=== PATIENT | female | born 1990 | race Caucasian/White ===

== ENCOUNTER 2019-11-25 17:16 | Outpatient (CLI) | payer BC ==
[2019-11-25 17:53] LABS: Glucose,Whole Blood 90 mg/dL (75-99)
[2019-11-25 18:17] VITALS: BP 125/65; PULSE 87; RESP 16; TEMP 98.7
--- NOTE | 2019-12-04 07:59 | P.MSEPDOC ---
Presenting Problems - Arrival Data Date of Arrival on Unit: 11/25/19 Time of Arrival on Unit: 17:16 Mode of Transport: Ambulatory - Complaint OB-Reason for Admission/Chief Complaint: Observation/Evaluation Medical History - Information : 2 Para: 1 Term: 1 : 0 Abortions: Spontaneous or Elective: 0 Number of Living Children: 1 - Gestational Age Gestational Age by BESSY (wks/days): 22 Weeks and 2 Days Review of Systems - Review of Systems Constitutional: No problems Breast: No problems ENT: No problems Cardiovascular: No problems Respiratory: No problems Gastrointestinal: No problems Genitourinary: No problems Musculoskeletal: No problems Neurological: Dizziness Skin: No problems Vital Signs - Temperature Temperature: 98.7 F Temperature Source: Temporal Artery Scan - Pulse Right Sitting Pulse Rate: 87 Pulse Assessment Method: Automatic Cuff - Respirations Respiratory Rate: 16 Oxygen Delivery Method: Room Air - Blood Pressure Right Arm Blood Pressure: 125/65 Blood Pressure Mean: 85 Blood Pressure Source: Automatic Cuff Medical Screen Scoring (Pre) - Cervical Exam Dilation: Exam Deferred Effacement: Exam Deferred Membranes: Intact - Uterine Contractions Frequency: N/A - Maternal Vital Signs Maternal Temperature: N/A Maternal Respirations: N/A - Maternal Trauma Maternal Trauma: N/A - Assessment - Baby A Position: N/A Station: N/A - Total Score - Baby A Total Score - Baby A: 0 - Total Score - Baby B Total Score - Baby B: 0 - Total Score - Baby C Total Score - Baby C: 0 - Level of Risk - Baby A Level of Risk - Baby A: Low (0-5) - Level of Risk - Baby B Level of Risk - Baby B: Low (0-5) - Level of Risk - Baby C Level of Risk - Baby C: Low (0-5) Physician Notification (Pre) - Physician Notified Physician Notified Date: 11/25/19 Physician Notified Time: 17:58 New Order Received: Yes (d/c home) Disposition - Disposition OB Disposition: Physician follow up in office, Discharge to home Discharge Date: 11/25/19 Discharge Time: 17:58 I agree with the RN Medical Screening Exam: No Risk & Benefit of care provided described in d/c instruction: No Risk & Benefit of Care Comment: Cannot agree or disagree secondary to incomplete documentation Diagnosis: RELATED CONDITIONS, UNSPECIFIED, THIRD TRIMESTER
== END 2019-11-25 18:00 | disposition home or self-care (01) ==
LOC: FBPOP 17:16
PROVIDERS: ATTEND Obstetrics & Gynecology
DX: O26.92 Pregnancy related conditions, unspecified, second trimester (principal); Z3A.22 22 weeks gestation of pregnancy
CPT/HCPCS: 99213

== ENCOUNTER 2019-12-09 14:13 | Outpatient (CLI) | payer BC ==
[2019-12-09 16:05] VITALS: BP 119/65; PULSE 75; RESP 16; TEMP 97.3
--- NOTE | 2019-12-10 07:42 | P.MSEPDOC ---
Presenting Problems - Arrival Data Date of Arrival on Unit: 12/09/19 Time of Arrival on Unit: 15:13 Mode of Transport: Ambulatory - Complaint OB-Reason for Admission/Chief Complaint: Vaginal Bleeding Medical History - Information : 2 Para: 1 Term: 1 : 0 Abortions: Spontaneous or Elective: 0 Number of Living Children: 1 - Gestational Age Gestational Age by BESSY (wks/days): 24 Weeks and 2 Days Review of Systems - Review of Systems Constitutional: No problems Breast: No problems ENT: No problems Cardiovascular: No problems Respiratory: No problems Gastrointestinal: No problems Genitourinary: No problems Musculoskeletal: No problems Neurological: No problems Skin: No problems Vital Signs - Temperature Temperature: 97.3 F Temperature Source: Temporal Artery Scan - Pulse Right Brachial Pulse Rate: 75 Pulse Assessment Method: Automatic Cuff - Respirations Respiratory Rate: 16 Oxygen Delivery Method: Room Air - Blood Pressure Right Arm Blood Pressure: 119/65 Blood Pressure Mean: 83 Blood Pressure Source: Automatic Cuff Medical Screen Scoring (Pre) - Cervical Exam Dilation: Exam Deferred Effacement: Exam Deferred Membranes: Intact - Uterine Contractions Frequency: N/A Duration: N/A Intensity: N/A - Maternal Vital Signs Maternal Temperature: N/A Maternal Blood Pressure: N/A Signs of Preeclampsia: N/A Maternal Respirations: N/A - Maternal Trauma Maternal Trauma: N/A - Assessment - Baby A Baseline FHR: 140 Heart Rate - NICHD Category: Category I (Normal) = 0 NST: Reactive Position: N/A Station: N/A - Total Score - Baby A Total Score - Baby A: 0 - Total Score - Baby B Total Score - Baby B: 0 - Total Score - Baby C Total Score - Baby C: 0 - Level of Risk - Baby A Level of Risk - Baby A: Low (0-5) - Level of Risk - Baby B Level of Risk - Baby B: Low (0-5) - Level of Risk - Baby C Level of Risk - Baby C: Low (0-5) Physician Notification (Pre) - Physician Notified Physician Notified Date: 12/09/19 Physician Notified Time: 15:46 New Order Received: Yes - Notification Comment Comment: Dr. Rodriguez in unit and given report on pt in triage. Pt c/o. Reviewed strip. Pt. VS WNL. No active bleeding noted per pt or new blood on pad. Orders recieved to d/c pt. to home. To educate pt to call office for apt within next 7-10 days. Pelvic rest and. increase fluids. Disposition - Disposition OB Disposition: Physician follow up in office, Discharge to home Discharge Date: 12/09/19 Discharge Time: 15:50 I agree with the RN Medical Screening Exam: Yes Risk & Benefit of care provided described in d/c instruction: Yes Diagnosis: SPOTTING COMPLICATING , SECOND TRIMESTER
== END 2019-12-09 15:55 | disposition home or self-care (01) ==
LOC: FBPOP 14:13
PROVIDERS: ATTEND Obstetrics & Gynecology
DX: O26.852 Spotting complicating pregnancy, second trimester (principal); Z3A.24 24 weeks gestation of pregnancy
CPT/HCPCS: 99213

== ENCOUNTER 2020-03-10 14:19 | Outpatient (CLI) | payer BC ==
[2020-03-10 16:12] VITALS: BP 129/70; PULSE 81; RESP 16; TEMP 98.1
--- NOTE | 2020-03-13 09:28 | P.MSEPDOC ---
Presenting Problems - Arrival Data Date of Arrival on Unit: 03/10/20 Time of Arrival on Unit: 14:19 Mode of Transport: Ambulatory - Complaint OB-Reason for Admission/Chief Complaint: Pain Comment: constant lower abd pain since being checked this am in office Medical History - Information : 2 Para: 1 Term: 1 : 0 Abortions: Spontaneous or Elective: 0 Number of Living Children: 1 - Gestational Age Gestational Age by BESSY (wks/days): 37 Weeks and 4 Days Review of Systems - Review of Systems Constitutional: No problems Breast: No problems ENT: No problems Cardiovascular: No problems Respiratory: No problems Gastrointestinal: No problems Genitourinary: No problems Musculoskeletal: No problems Neurological: No problems Skin: No problems Vital Signs - Temperature Temperature: 98.1 F Temperature Source: Temporal Artery Scan - Pulse Right Sitting Pulse Rate: 81 Pulse Assessment Method: Automatic Cuff - Respirations Respiratory Rate: 16 Oxygen Delivery Method: Room Air - Blood Pressure Right Arm Blood Pressure: 129/70 Blood Pressure Mean: 89 Blood Pressure Source: Automatic Cuff Medical Screen Scoring (Pre) - Cervical Exam Dilation: 1-3 cm = 1 Effacement: More than 50% = 2 Membranes: Intact - Uterine Contractions Frequency: > or = 36 weeks =2 Duration: > 40 seconds = 2 Intensity: N/A - Maternal Vital Signs Maternal Temperature: N/A Maternal Blood Pressure: N/A Signs of Preeclampsia: N/A Maternal Respirations: N/A - Maternal Trauma Maternal Trauma: N/A - Assessment - Baby A Baseline FHR: 130 Heart Rate - NICHD Category: Category I (Normal) = 0 NST: Reactive Position: N/A Station: N/A - Total Score - Baby A Total Score - Baby A: 7 - Total Score - Baby B Total Score - Baby B: 7 - Total Score - Baby C Total Score - Baby C: 7 - Level of Risk - Baby A Level of Risk - Baby A: Medium (6-9) - Level of Risk - Baby B Level of Risk - Baby B: Medium (6-9) - Level of Risk - Baby C Level of Risk - Baby C: Medium (6-9) Physician Notification (Pre) - Physician Notified Physician Notified Date: 03/10/20 Physician Notified Time: 15:14 New Order Received: Yes (D/c home if no change in cervix) Disposition - Disposition OB Disposition: Physician follow up in office, Discharge to home Discharge Date: 03/10/20 Discharge Time: 15:50 I agree with the RN Medical Screening Exam: Yes Risk & Benefit of care provided described in d/c instruction: Yes Diagnosis: FALSE LABOR AT OR AFTER 37 COMPLETED WEEKS OF GESTATION
== END 2020-03-10 15:50 | disposition home or self-care (01) ==
LOC: FBPOP 14:19
PROVIDERS: ATTEND Obstetrics & Gynecology
DX: O47.1 False labor at or after 37 completed weeks of gestation (principal); Z3A.37 37 weeks gestation of pregnancy
CPT/HCPCS: 59025; 99213

== ENCOUNTER 2020-03-22 06:00 | Inpatient (IN) | payer BC ==
[2020-03-22] MEDS ORDERED: METHYLERGONOVINE 0.2 MG/ML 1 ML AMP IM PRN (06:12)
[2020-03-22] MEDS ORDERED: OXYTOCIN 10 UNIT/ML 1 ML VIAL IM PRN (06:12)
[2020-03-22] MEDS ORDERED: LIDOCAINE 0.5% (PF) 5 MG/ML (50 ML SDV) SQ PRN (06:12)
[2020-03-22] MEDS ORDERED: CARBOPROST TROMETHAMINE 250 MCG/ML 1 ML AMP IM PRN (06:12)
[2020-03-22] MEDS ORDERED: TERBUTALINE 1 MG/ML VIAL SQ PRN (06:12)
[2020-03-22] MEDS: LACTATED RINGERS 1,000 ML IV SCH ×2 (06:43→09:19)
[2020-03-22] MEDS: OXYTOCIN 30 UNITS/500 ML NS 30 UNIT in SALINE 1 500ML.BAG IV SCH (06:44)
--- NOTE | 2020-03-22 07:36 | P.HPOB ---
History of Present Illness H&P Date: 03/22/20 This is a 29-year-old white female 2 para 1001 EDC 03/28/2020 at 39 and one sevenths weeks' gestation. Patient presents today for induction with favorable multiparous cervix. Fetus is been active throughout the . She denies vaginal bleeding or fluid leakage. history significant for blood type A+, rubella status immune. Urine culture, hepatitis B surface antigen, HIV testing, gonorrhea and chlamydia cultures, group B strep cultures all negative. Pap within normal limits. One- hour Glucola 95. Past medical history is essentially unremarkable. 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 Past surgical history negative. Current medications vitamins daily, valtrex 500mg daily prophylactically. ALLERGIES penicillin to which reports an unknown reaction as a child. Social history patient is , her is present and involved. She has never been a smoker. She denies alcohol or drug use. Family history is significant for colon cancer. On exam this is a pleasant white female who is 5 foot 7 inches, 179 pounds, blood pressure 127/67, vital signs stable and she is afebrile. The general physical exam is within normal limits. Extremities reveal no edema. Chest is clear. Pelvic exam reveals cervix to be 4 cm dilated, 80% effaced, -2 station, vertex presentation, soft and anterior. Artificial amniorrhexis reveals clear fluid. heart rate is in the 130s with frequent accelerations consistent with reactive NST. Patient is having mild contractions every 4 minutes apart which she does not palpate. Impression: 39 and one sevenths weeks intrauterine , here for induction of labor, all signs reassuring. No HSV lesions or prodrome. Plan: Continue close maternal and surveillance. Oxytocin per hospital protocol. Analgesic options reviewed with the patient. Anticipate normal spontaneous vaginal delivery. Review of Systems Constitutional: Reports as per HPI Past Medical History Past Medical History: No Reported History History of Any Multi-Drug Resistant Organisms: None Reported Past Surgical History: No Surgical Hx Reported Past Anesthesia/Blood Transfusion Reactions: No Reported Reaction Past Psychological History: No Psychological Hx Reported Smoking Status: Never smoker Past Alcohol Use History: None Reported Past Drug Use History: None Reported - Past Family History Mother Family Medical History: No Reported History Medications and Allergies Home Medications Medication Instructions Recorded Confirmed Type Pnv No.95/Ferrous Fum/Folic AC 1 each PO DAILY 12/25/19 04/21/20 History [ Multivitamin Tablet] valACYclovir [Valtrex] 1 tab PO DAILY 03/10/20 03/22/20 History Allergies Allergy/AdvReac Type Severity Reaction Status Date / Time Penicillins AdvReac Unknown Verified 03/10/20 14:44 Childhood Exam Vital Signs Temp Pulse Resp BP Pulse Ox 03/22/20 06:10 97.3 F L 95 16 127/67 96 Intake and Output 03/21/20 03/22/20 03/22/20 22:59 06:59 14:59 Other: Weight 81.193 kg See dictation under HPI please Assessment and Plan Assessment: 39 and one sevenths weeks intrauterine , here for elective induction of labor. All signs reassuring. Plan: Continue oxytocin per hospital protocol. Continue close maternal and surveillance. Anticipate normal spontaneous vaginal delivery. Time with Patient: Less than 30
[2020-03-22 07:37] LABS: Basophils % (A) 0 %; Eosinophils # (A) 0.1 k/uL (0-0.7); Eosinophils % (A) 2 %; HCT 39.2 % (34.0-46.0); Lymphocytes # (A) 1.4 k/uL (1.0-4.8); Lymphocytes % (A) 19 %; MCH 31.3 pg (25.0-35.0); MCV 94.7 fL (80.0-100.0); Monocytes # (A) 0.4 k/uL (0-1.0); Monocytes % (A) 6 %; Neutrophils # (A) 5.1 k/uL (1.3-7.7); Neutrophils % (A) 72 %; Platelet Count 148 k/uL (150-450); RBC 4.14 m/uL (3.80-5.40); RDW 14.5 % (11.5-15.5); WBC 7.1 k/uL (3.8-10.6)
[2020-03-22] MEDS ORDERED: SODIUM CHLORIDE 0.9% 100 ML BAG ONE (08:59)
[2020-03-22] MEDS ORDERED: ROPIVACAINE 5MG/ML 20ML VIAL ONE (08:59)
[2020-03-22] MEDS ORDERED: fentaNYL (PF) 50 MCG/ML 5 ML AMP ONE (08:59)
[2020-03-22] MEDS ORDERED: ACETAMINOPHEN TAB 325 MG TAB PO PRN (12:39)
[2020-03-22] MEDS ORDERED: HYDROCORTISONE 2.5% RECTAL CREAM 30 GM TUBE RECTAL PRN (12:39)
[2020-03-22] MEDS ORDERED: diphenhydrAMINE 50 MG CAP PO PRN (12:39)
[2020-03-22] MEDS ORDERED: LANOLIN CREAM 5 GM TUBE TOPICAL PRN (12:39)
[2020-03-22] MEDS ORDERED: diphenhydrAMINE 25 MG CAP PO PRN (12:39)
[2020-03-22] MEDS ORDERED: WITCH HAZEL 1 EACH MED..PAD TOPICAL PRN (12:39)
[2020-03-22] MEDS ORDERED: BENZOCAINE/MENTHOL SPRAY 1 GM/SPRAY AEROSOL TOPICAL PRN (12:39)
[2020-03-22] MEDS ORDERED: SIMETHICONE 80 MG CHEWABLE PO PRN (12:39)
[2020-03-22] MEDS ORDERED: diphenhydrAMINE ELIXIR 25 MG/10 ML CUP PO PRN (12:39)
[2020-03-22] MEDS ORDERED: ZOLPIDEM 5 MG TAB PO PRN (12:39)
[2020-03-22] MEDS ORDERED: diphenhydrAMINE 50 MG/ML 1 ML VIAL IVP PRN ×2 (12:39)
--- NOTE | 2020-03-22 12:39 | P.PROBDLV ---
Vaginal Delivery Note - . Vaginal Delivery Note: This is a 29-year-old white female 2 para 1001 EDC 03/28/2020 at 39 and one sevenths weeks' gestation. Patient presented for induction with favorable multiparous cervix. Fetus is been active throughout the . Blood type A+, rubella status immune, group B strep cultures negative. Please see admitting history and physical for details. Artificial amniorrhexis revealed clear fluid. Oxytocin was started and titrated per hospital protocol. Epidural was placed per her request. Patient has a history of HSV, but no lesions or prodrome, on Valtrex 500 mg daily. heart tones were reassuring throughout the first and second stages of labor. Patient became completely dilated and began the second stage of labor at that time. Perineal body was prepped and draped in usual sterile fashion. With excellent maternal expulsive efforts the 's head delivered occiput anterior and restituted accordingly. There was no nuchal cord noted. The right or anterior shoulder was gently delivered from underneath the pubic symphysis at which time the oropharynx, nasopharynx, and external nares were bulb suctioned on the perineal body. Patient was officially delivered of a liveborn male infant at 1224 hours. Umbilical cord was doubly clamped and ligated, he was handed to waiting nurses for evaluation where scores of 8 and 9 at one and 5 minutes respectively were given. The placenta delivered with active management, was inspected and noted to be intact with trivascular cord at 1229 hours. Uterus is then massaged. Careful inspection of the cervix, vagina, perineum, periurethral, and perirectal areas revealed no lacerations and no defects. weighs 4620 g or 10 lbs. 3 oz. Total estimated blood loss 350 mL's. Patient and her are requesting circumcision for their infant son.
[2020-03-22] MEDS ORDERED: OXYTOCIN 20 UNITS/1000 ML NS 1,000 ML IV SCH (12:45)
[2020-03-22] MEDS: IBUPROFEN 600 MG TAB PO PRN (17:37)
[2020-03-22] MEDS: SENNOSIDES-DOCUSATE SODIUM 1 EACH TAB PO SCH (19:22)
[2020-03-23] MEDS: IBUPROFEN 600 MG TAB PO PRN ×3 (00:17→13:18)
[2020-03-23] MEDS: SENNOSIDES-DOCUSATE SODIUM 1 EACH TAB PO SCH (07:28)
[2020-03-23 07:30] VITALS: BP 103/75; PULSE 78; RESP 17; TEMP 98
[2020-03-23] MEDS: OXYTOCIN 30 UNITS/500 ML NS 30 UNIT in SALINE 1 500ML.BAG IV SCH (08:04)
[2020-03-23] MEDS: LACTATED RINGERS 1,000 ML IV SCH (08:04)
--- NOTE | 2020-03-23 11:51 | P.DS ---
Providers Date of admission: 03/22/20 06:00 Expected date of discharge: 03/23/20 Attending physician: Alie Rodriguez Primary care physician: Stated None Hospital Course: This is a 29-year-old white female 2 para 1001 EDC 03/28/2020 at 39 and one sevenths weeks' gestation. Patient presented for induction with favorable multiparous cervix. was remarkable for negative group B strep cultures, blood type B positive, rubella status immune. Please see dictated history and physical for details. Artificial amniorrhexis was performed. Epidural was placed per her request. Oxytocin titrated per hospital protocol. Patient went on to deliver vaginally a liveborn male infant with scores of 8 and 9 at one and 5 minutes respectively. He weighed 4620 g, or 10 lbs. 3 oz. Estimated blood loss 350 mL's. Please see dictated delivery note for details. This morning circumcision has been performed. Alma is doing well. Patient herself is also judged to be in very good condition for discharge home. She will use [id number] Advil or Aleve, or Motrin as needed for pain. She will continue taking her vitamin daily. We have reviewed options for contraception and we will discuss this further in the office. No intercourse, tampons or douching. No heavy lifting. Patient will call with any fevers shakes or chills, foul smelling or copious lochia, with the passage of large blood clots, with any pain not alleviated by [id number] products, or indeed with any concerns. Parents will follow up with 's vehicle technician as recommended. Assessment: Doing well day #1 Patient Condition at Discharge: Good Plan - Discharge Summary Discharge Rx Participant: No New Discharge Prescriptions: No Action Pnv No.95/Ferrous Fum/Folic AC [ Multivitamin Tablet] 1 each PO DAILY valACYclovir [Valtrex] 1 tab PO DAILY Discharge Medication List Pnv No.95/Ferrous Fum/Folic AC [ Multivitamin Tablet] 1 each PO DAILY 11/25/19 [History] valACYclovir [Valtrex] 1 tab PO DAILY 03/10/20 [History] Follow up Appointment(s)/Referral(s): Alie Rodriguez MD [STAFF PHYSICIAN] - 6 Weeks
== END 2020-03-23 13:20 | disposition home or self-care (01) | DRG 807 ==
LOC: 4FBP 06:00
PROVIDERS: ADMIT Obstetrics & Gynecology; ATTEND Obstetrics & Gynecology
PROC: 10E0XZZ Delivery of Products of Conception, External Approach (ICD-10-PCS; principal; 2020-03-22)
PROC: 3E033VJ Introduction of Other Hormone into Peripheral Vein, Percutaneous Approach (ICD-10-PCS; principal; 2020-03-22)
PROC: 00HU33Z Insertion of Infusion Device into Spinal Canal, Percutaneous Approach (ICD-10-PCS; principal; 2020-03-22)
PROC: 3E0R3BZ Introduction of Anesthetic Agent into Spinal Canal, Percutaneous Approach (ICD-10-PCS; principal; 2020-03-22)
PROC: 10907ZC Drainage of Amniotic Fluid, Therapeutic from Products of Conception, Via Natural or Artificial Opening (ICD-10-PCS; principal; 2020-03-22)
DX: O80 Encounter for full-term uncomplicated delivery (principal); Z37.0 Single live birth; Z3A.39 39 weeks gestation of pregnancy; Z79.899 Other long term (current) drug therapy; Z86.19 Personal history of other infectious and parasitic diseases; Z88.0 Allergy status to penicillin; Z80.0 Family history of malignant neoplasm of digestive organs
CPT/HCPCS: 85025; 86850; 86900; 86901

== ENCOUNTER → 2022-03-22 | Outpatient (CLI) | payer OTHER ==
[2022-03-22 23:24] LABS: Basophils # (A) 0.02 X 10*3/uL (0.00-0.10); Basophils % (A) 0.4 %; Eosinophils # (A) 0.16 X 10*3/uL (0.04-0.35); Eosinophils % (A) 3.1 %; HGB 13.3 g/dL (12.0-15.0); Immature Grans, Automated 0.2 %; Lymphocytes # (A) 1.19 X 10*3/uL (0.90-5.00); Lymphocytes % (A) 23.4 %; MCH 30.3 pg (27.0-32.0); MCHC 32.4 g/dL (32.0-37.0); MCV 93.4 fL (80.0-97.0); Mean Platelet Volume 11.5 fL (9.5-12.2); Monocytes # (A) 0.62 X 10*3/uL (0.20-1.00); Monocytes % (A) 12.2 %; NRBC Per 100 WBC 0 /100 WBCS (0.0-0.0); Neutrophils # (A) 3.09 X 10*3/uL (1.80-7.70); Neutrophils % (A) 60.7 %; Platelet Count 211 X 10*3/uL (140-440); RBC 4.39 X 10*6/uL (4.10-5.20); RDW 12.9 % (11.5-14.5); WBC 5.09 X 10*3/uL (4.50-10.00)
== END | disposition home or self-care (01) ==
LOC: LABPAT 15:10
PROVIDERS: ATTEND Obstetrics & Gynecology
DX: Z01.812 Encounter for preprocedural laboratory examination (principal); N92.0 Excessive and frequent menstruation with regular cycle
CPT/HCPCS: 36415; 85025

== ENCOUNTER 2022-04-03 08:46 | Day surgery (SDC) | payer OTHER ==
[2022-03-30 11:36] VITALS: BMI 22.0
--- NOTE | 2022-04-02 09:50 | HP ---
HISTORY AND PHYSICAL DATE OF SURGERY: 04/03/2022 This is a 31-year-old female 2, para 2-0-0-2, who presents with irregular menses, occurring every 20 days apart, lasting for 7 days, very heavy without clots. Her has had a vasectomy. She has significant intermenstrual bleeding. She has been counseled thoroughly and our plan is for hysteroscopy, NovaSure ablation. Office sampling has been performed and endometrial cavity is negative for dysplasia. PAST MEDICAL HISTORY: Significant for HSV type 1. PAST SURGICAL HISTORY: Negative. ALLERGIES: PENICILLIN, to which she reports a reaction as an . FAMILY HISTORY: Significant for colon cancer. REPRODUCTIVE HISTORY: Normal spontaneous vaginal deliveries x2. SOCIAL HISTORY: Patient is to her . She denies alcohol, tobacco or drug use. CURRENT MEDICATIONS: None. PHYSICAL EXAMINATION: Patient is 5 feet 6-1/2 inches, 147 pounds, BMI 23, blood pressure 102/66, pulse 70. HEENT exam is within normal limits, with no thyromegaly or cervical lymphadenopathy. Chest is clear to auscultation in all cruz anteriorly and posteriorly. Cardiac exam reveals regular rate and rhythm with no murmur, click or rub. Abdomen is soft, nontender. No organosplenomegaly or CVA tenderness. Active bowel sounds. Extremities reveal no edema, good peripheral pulses, normal range of motion. On pelvic exam, cervix is multiparous. Pap smear is up to date and normal. Uterus is small, mobile, nontender, smooth. Adnexa are negative bilaterally. No rectal lesions or masses. Good sphincter tone. Neurologically patient is grossly oriented to person, place and time, exhibiting good judgment and insight with normal mood and affect. IMPRESSION: Menorrhagia, wishing ablation. PLAN: We will proceed with hysteroscopy and NovaSure endometrial ablation. The risks, benefits and alternatives have all been discussed in detail. All questions answered. Manufacture's information on the printed form was received and reviewed. MMODL / IJN: [id number] /
[~2022-04-03 08:46] MED LIST: DEXAMETHASONE SOD PHOSPHATE 4 MG/ML 1 ML VIAL IV ONE; HYDROmorphone 0.5 MG/0.5 ML SYRINGE IVP PRN; LACTATED RINGERS 1,000 ML IV SCH; LIDOCAINE 1% (10MG/ML) FOR IV START INTRADERMA PRN; ONDANSETRON 4 MG/2 ML VIAL IVP PRN; Pre Op ABX Message 1 EACH MISC MISCELLANE ONE
[2022-04-03] MEDS ORDERED: fentaNYL (PF) 50 MCG/ML 2 ML AMP ONE (09:50)
[2022-04-03] MEDS ORDERED: PROPOFOL 10 MG/ML 20 ML VIAL IV ONE (09:50)
[2022-04-03] MEDS ORDERED: KETOROLAC 15 MG/ML 1 ML VIAL ONE (09:50)
[2022-04-03] MEDS ORDERED: LIDOCAINE 2% INJ 20 MG/ML (2 ML VIAL) ONE (09:50)
[2022-04-03] MEDS ORDERED: MIDAZOLAM 2 MG/2 ML VIAL ONE (09:50)
[2022-04-03 10:28] VITALS: TEMP 97.6
--- NOTE | 2022-04-03 10:30 | P.OP ---
Date of Procedure: 04/03/22 Preoperative Diagnosis: menorrhagia Postoperative Diagnosis: same Procedure(s) Performed: hysteroscopy Anesthesia: SAMA Surgeon: Alie Rodriguez Estimated Blood Loss (ml): 10 IV fluids (ml): 400 Urine output (ml): 100 Pathology: none sent Condition: stable Disposition: PACU Operative Findings: Normal-appearing cavity, shaggy menstrual-type tissue Description of Procedure: Patient is brought to the operating suite where a general anesthetic is administered without difficulty. She's placed in the dorsal lithotomy position. The appropriate timeout is performed to assure proper patient and procedural id entification after the patient is prepped and draped in the usual sterile fashion. Toradol is given. Urine hCG is negative. Examination under anesthesia reveals a small anteverted uterus, negative adnexa bilaterally. Bladder is drained for approximately 100 mL of clear yellow urine. Weighted speculum was placed into the vagina. Anterior lip of the cervix is grasped with a double-tooth tenaculum. There is evidence of an old cervical laceration at 3:00. Cervix is gently and systematically dilated using Hanks dilators. The cavity sounds to a depth of 8 cm. The hysteroscope was introduce d and fluid is infused into the cavity. Assessment of the cavity is negative, no obvious polyps or fibroids, normal-appearing ostia. Abundant-appearing proliferative-type tissue. The hysteroscope was removed. The NovaSure is placed and the placement is checked. The uterine depth of 6.0 cm, width of 4.2 cm is calibrated. The machine is properly enabled. An Allis clamp is used on the edges of the previous cervical laceration at 3:00. 449 seconds and a power of 139 W the procedure is carried out. When the machine shuts off spontaneously, the wand is reduced and removed. Hysteroscope was once again placed and the cavity appears to be uniformly blanched. Tenaculum is removed. Cervix is clean and dry. All sponge needle and enhancement counts are correct. Patient is brought back to recovery room in excellent condition with stable vital signs including blood pressure 100/53, pulse 67, 99% O2 saturation. Patient will follow-up with me in the office in 2 weeks.
[2022-04-03 10:33] VITALS: RESP 16
[2022-04-03 11:45] VITALS: BP 105/62; PULSE 53
== END 2022-04-03 11:59 | disposition home or self-care (01) ==
LOC: OR 08:46
PROVIDERS: ATTEND Obstetrics & Gynecology
DX: R92.1 Mammographic calcification found on diagnostic imaging of breast (principal); Z80.0 Family history of malignant neoplasm of digestive organs; Z98.890 Other specified postprocedural states; Z88.0 Allergy status to penicillin
CPT/HCPCS: 81025; 58563; J2250; J1100; J2405; J3010; J1885; J2704; J2001